=== PATIENT | male | born 1960 | race Caucasian/White ===

== ENCOUNTER 2016-08-03 17:26 | Inpatient (IN) | payer SELFPAY ==
[2016-08-03] VITALS (8 sets, daily range): BP systolic 114–157; BP diastolic 65–101; PULSE 85–160; RESP 18–20; TEMP 98.6–99.9; O2SAT 94–100
[~2016-08-03] VITALS: Ht 180.3 cm; Wt 100.4 kg
[2016-08-03] MEDS ORDERED: DILTIAZEM HCL 25 MG/5 ML VIAL IVP ONE (17:30)
[2016-08-03] MEDS ORDERED: DILTIAZEM INJ 125 MG in SODIUM CHLORIDE 0.9% INJ 100 ML IV SCH (17:30)
[2016-08-03] MEDS ORDERED: SODIUM CHLOR 0.9% 1000 ML INJ 1,000 ML IV ONE (17:30)
[2016-08-03] MEDS ORDERED: SODIUM CHLORIDE 0.9% FLUSH 10 ML FLUSH IVF PRN (17:30)
[2016-08-03] MEDS ORDERED: LORazepam 2 MG/ML VIAL IV PUSH ONE (17:30)
[2016-08-03] MEDS ORDERED: DILTIAZEM HCL 25 MG/5 ML VIAL IV ONE (18:00)
[2016-08-03] MEDS ORDERED: LORazepam 2 MG/ML VIAL IV PUSH PRN ×8 (18:00→19:15)
[2016-08-03] MEDS ORDERED: LORazepam 2 MG TAB PO PRN ×2 (18:00→19:15)
[2016-08-03] MEDS ORDERED: FLUMAZENIL 0.5 MG/5 ML VIAL IV PUSH PRN ×2 (18:00→19:15)
[2016-08-03] MEDS ORDERED: LORazepam 1 MG TAB PO PRN ×2 (18:00→19:15)
--- NOTE | 2016-08-03 18:04 | RADRPT ---
EXAM DATE/TIME: 08/03/2016 17:38 [place] COMPARISON: No previous studies available for comparison. INDICATIONS : Chest pain. MEDICAL HISTORY : None. SURGICAL HISTORY : None. ENCOUNTER: Initial ACUITY: 1 day PAIN SCORE: 0/10 LOCATION: Bilateral chest FINDINGS: A single view of the chest demonstrates the lungs to be symmetrically aerated with some respiratory m otion artifact in the bases. There may be some minimal atelectatic changes above the hemidiaphragms b ut no confluent infiltrates. Heart size is normal. Osseous structures are intact. CONCLUSION: Minimal bibasilar atelectatic changes with no confluent infiltrate or effusion. Sesar Morrow MD on August 03, 2016 at 18:01 Board Certified Radiologist. This report was verified electronically.
[2016-08-03 18:10] LABS: AUTOMATED NEUTROPHIL # 7.3 TH/MM3 (1.8-7.7); BASOPHIL # 0.1 TH/MM3 (0-0.2); BASOPHIL % 0.8 % (0.0-2.0); EOSINOPHIL % 0.2 % (0.0-4.0); HEMATOCRIT 47.8 % (39.0-51.0); HEMO FLAGS DIFF FINAL; LYMPH % 9.9 % (9.0-44.0); LYMPHOCYTE # 0.9 TH/MM3 (1.0-4.8); MEAN CELL VOLUME 102.8 FL (80.0-100.0); MEAN CORPUSCULAR HEMOGLOBIN 35.3 PG (27.0-34.0); MEAN CORPUSCULAR HGB CONC 34.3 % (32.0-36.0); MONO % 12.1 % (0.0-8.0); PLATELET COUNT 134 TH/MM3 (150-450); RED BLOOD COUNT 4.65 MIL/MM3 (4.50-5.90); RED CELL DISTRIBUTION WIDTH 12.6 % (11.6-17.2); WHITE BLOOD COUNT 9.5 TH/MM3 (4.0-11.0)
--- NOTE | 2016-08-03 18:25 | PD ---
HPI Chief Complaint: Cardiac Complaint Time Seen by Provider: 17:29 Travel History International Travel<30 days: No Contact w/Intl Traveler<30days: No Traveled to known affect area: No History of Present Illness HPI So 56-year-old male presents to the emergency department complaining of feeling off balance and dizzy and lightheaded since yesterday. On scene with EMS he was in A. fib RVR which is new for him. EMS called a STEMI alert because of the right knee appearance of his EKG. Patient states she's never had similar symptoms before. Treated for hypertension in the past but when he lost weight he really didn't have any symptoms anymore. He is not on any medications now. He does drink alcohol 8-12 beers a day. Endorses getting shaky be doesn't drink , but no other more fulminant withdrawal symptoms in the past. Last drank yesterday. States today felt ill, does drink some water only. Denies any significant chest pain, he does get some occasional chest tightness. No dyspnea on exertion. No syncope. No other complaints. History Past Medical History Narrative Medical History of hypertension in the past Daily alcohol use, 8-10 beers Social History Alcohol Use: Yes (8-12 BEERS ) Tobacco Use: Yes (PACK A DAY ) Allergies-Medications (Allergen,Severity, Reaction): Coded Allergies: Penicillin (Verified Allergy, Unknown, RASH, 08/03/16) Reported Meds & Prescriptions Reported Meds & Active Scripts Active No Active Prescriptions or Reported Medications Review of Systems Except as stated in HPI: all other systems reviewed are Neg Physical Exam Narrative GENERAL: 56-year-old man, generally well-appearing. No acute distress. SKIN: Focused skin assessment warm/dry. HEAD: Atraumatic. Normocephalic. EYES: Pupils equal and round. No scleral icterus. No injection or drainage. ENT: No nasal bleeding or discharge. Mucous membranes pink and moist. NECK: Trachea midline. No JVD. CARDIOVASCULAR: Heart rate rapid and irregular. Good perfusion. RESPIRATORY: No accessory muscle use. Clear to auscultation. Breath sounds equal bilaterally. GASTROINTESTINAL: Abdomen soft, non-tender, nondistended. Hepatic and splenic margins not palpable. MUSCULOSKELETAL: No obvious deformities. No edema. NEUROLOGICAL: Awake and alert. No obvious cranial nerve deficits. Motor grossly within normal limits. Normal speech. Data Data Last Documented VS Vital Signs Date Time Temp Pulse Resp B/P Pulse Ox O2 Delivery O2 Flow Rate FiO2 08/03/16 17:45 150 18 100 Nasal Cannula 2 08/03/16 17:30 99.9 157/101 Orders Electrocardiogram (08/03/16:29) Ckmb (Isoenzyme) Profile (08/03/16:29) Complete Blood Count With Diff (08/03/16:) Comprehensive Metabolic Panel (08/03/16) Magnesium (Mg) (08/03/16:29) Prothrombin Time / Inr (Pt) (08/03/16:29) Act Partial Throm Time (Ptt) (08/03/16:29) Troponin I (08/03/16) Lipase (08/03/16:29) Chest, Single Ap (08/03/16:29) Ecg Monitoring (08/03/16:29) Iv Access Insert/Monitor (08/03/16) Oximetry (08/03/16:29) Oxygen Administration (08/03/16:29) Sodium Chloride 0.9% Flush (Ns Flush) (08/03/16:30) Sodium Chlor 0.9% 1000 Ml Inj (Ns 1000 M (08/03/16 17:30) Lorazepam Inj (Ativan Inj) (08/03/16 17:30) Vital Signs (Adult) Q15MX4,Q4H (08/03/16:29) Tower Switch Operator / Telemetry AUDRA.Q8H (08/03/16:29) Cardiac Rhythm AUDRA.Q8H (08/03/16 17:29) Notify Dr: Other (08/03/16:29) Diltiazem Inj (Cardizem Inj) (08/03/16 17:30) Diltiazem Inj (Cardizem Inj) (08/03/16 17:30) Diltiazem Inj (Cardizem Inj) (08/03/16 18:00) Alcohol Withdrawal Asmt-Ciwa Q4HX18 (08/03/16 17:57) Flumazenil Inj (Romazicon Inj) (08/03/16 18:00) Lorazepam (Ativan) (08/03/16 18:00) Lorazepam Inj (Ativan Inj) (08/03/16 18:00) Lorazepam (Ativan) (08/03/16 18:00) Lorazepam Inj (Ativan Inj) (08/03/16 18:00) Lorazepam Inj (Ativan Inj) (08/03/16 18:00) Lorazepam Inj (Ativan Inj) (08/03/16 18:00) CKMB (08/03/16 17:50) CKMB% (08/03/16 17:50) Labs Laboratory Tests Test 08/03/16 17:50 White Blood Count 9.5 TH/MM3 Red Blood Count 4.65 MIL/MM3 Hemoglobin 16.4 GM/DL Hematocrit 47.8 % Mean Corpuscular Volume 102.8 FL Mean Corpuscular Hemoglobin 35.3 PG Mean Corpuscular Hemoglobin 34.3 % Concent Red Cell Distribution Width 12.6 % Platelet Count 134 TH/MM3 Mean Platelet Volume 8.5 FL Neutrophils (%) (Auto) 77.0 % Lymphocytes (%) (Auto) 9.9 % Monocytes (%) (Auto) 12.1 % Eosinophils (%) (Auto) 0.2 % Basophils (%) (Auto) 0.8 % Neutrophils # (Auto) 7.3 TH/MM3 Lymphocytes # (Auto) 0.9 TH/MM3 Monocytes # (Auto) 1.1 TH/MM3 Eosinophils # (Auto) 0.0 TH/MM3 Basophils # (Auto) 0.1 TH/MM3 CBC Comment DIFF FINAL Differential Comment Prothrombin Time 12.4 SEC Prothromb Time International 1.1 RATIO Ratio Activated Partial 27.1 SEC Thromboplast Time Sodium Level 138 MEQ/L Potassium Level 3.8 MEQ/L Chloride Level 106 MEQ/L Carbon Dioxide Level 24.4 MEQ/L Anion Gap 8 MEQ/L Blood Urea Nitrogen 7 MG/DL Creatinine 0.81 MG/DL Estimat Glomerular Filtration 98 ML/MIN Rate Random Glucose 142 MG/DL Calcium Level 8.3 MG/DL Magnesium Level 1.8 MG/DL Total Bilirubin 1.4 MG/DL Aspartate Amino Transf 42 U/L (AST/SGOT) Alanine Aminotransferase 63 U/L (ALT/SGPT) Alkaline Phosphatase 69 U/L Total Creatine Kinase 151 U/L Troponin I 0.11 NG/ML Total Protein 6.6 GM/DL Albumin 3.3 GM/DL Lipase 159 U/L [facility] Medical Decision Making Medical Screen Exam Complete: Yes Emergency Medical Condition: Yes Interpretation(s) My review of EKG: A. fib with RVR, heart rate 150s, right bundle branch block, no acute ischemia. LABS: CBC unremarkable. CMP generally unremarkable. Total bili 1.4. Troponin 0.11 Lipase normal Coags unremarkable Chest x-ray: Minimal bibasilar atelectatic changes with no confluent infiltrate or effusion. Differential Diagnosis A. fib RVR, electrolyte abnormality, alcohol withdrawal, dehydration, other Narrative Course Medical decision making INITIAL: This a 56-year-old man who presents to the emergency department complaining of lightheadedness dizziness. He is in A. fib RVR. He is a right bundle branch block. EMS called stimulator in the field. He is not having a STEMI. He may be having occult withdrawal symptoms as well as a grizzled anxious and jittery. We'll rate control him with diltiazem. We'll give him benzodiazepines and IV fluids as well. He'll be admitted for further evaluation. Diagnosis Primary Impression: Atrial fibrillation with RVR Additional Impression: Alcohol withdrawal Qualified Code: F10.230 - Alcohol withdrawal, uncomplicated Admitting Information Admitting Physician Requests: Admit Scripts No Active Prescriptions or Reported Meds Cristhian Matt MD Aug 03, 2016 18:25
[2016-08-03 18:31] LABS: ALT (GPT) 63 U/L (12-78); ANION GAP 8 MEQ/L (5-15); AST (GOT) 42 U/L (15-37); BICARBONATE 24.4 MEQ/L (21.0-32.0); BLOOD UREA NITROGEN 7 MG/DL (7-18); CHLORIDE 106 MEQ/L (98-107); GLOMERULAR FILTRATION RATE 98 ML/MIN (>89); MAGNESIUM 1.8 MG/DL (1.5-2.5); POTASSIUM 3.8 MEQ/L (3.5-5.1); SODIUM (NA) 138 MEQ/L (136-145)
[2016-08-03 18:34] LABS: ALKALINE PHOSPHATASE 69 U/L (45-117); CREATINE KINASE 151 U/L (39-308); TOTAL BILIRUBIN ADULT 1.4 MG/DL (0.2-1.0)
[2016-08-03 18:35] LABS: APTT (PATIENT) 27.1 SEC (24.3-30.1); INTERNATIONAL NORMALIZED RATIO 1.1 RATIO; PROTHROMBIN TIME - PATIENT 12.4 SEC (9.8-11.6)
[2016-08-03 18:47] LABS: CKMB 5.6 NG/ML (0.5-3.6)
[2016-08-03] MEDS ORDERED: ACETAMINOPHEN 325 MG TAB PO PRN (19:15)
[2016-08-03] MEDS ORDERED: SODIUM CHLORIDE 0.9% FLUSH 10 ML FLUSH IV FLUSH PRN ×2 (19:15)
[2016-08-03] MEDS ORDERED: MAGNESIUM HYDROXIDE SUSP 30 ML CUP PO PRN (19:15)
[2016-08-03] MEDS ORDERED: ONDANSETRON HCL 4 MG/2 ML VIAL IVP PRN (19:15)
[2016-08-03] MEDS ORDERED: TEMAZEPAM 15 MG CAP PO PRN (19:15)
[2016-08-03] MEDS: DOCUSATE SODIUM 100 MG CAP PO SCH (20:00)
[2016-08-03] MEDS ORDERED: THIAMINE INJ 100 MG in SODIUM CHLORIDE 0.9% INJ 100 ML IV ONE (20:00)
[2016-08-03] MEDS: SODIUM CHLORIDE 0.9% FLUSH 10 ML FLUSH IV FLUSH SCH (20:25)
[2016-08-03] MEDS: ENOXAPARIN SODIUM 40 MG/0.4 ML SYRINGE SQ SCH (20:25)
[2016-08-03] MEDS ORDERED: SODIUM CHLORIDE 0.9% FLUSH 10 ML FLUSH IV FLUSH SCH (21:00)
--- NOTE | 2016-08-03 23:09 | EKG ---
Date Performed: 08/03/2016 Time Performed: 17:34:11 PTAGE: 56 years EKG: ATRIAL FIBRILLATION WITH RAPID VENTRICULAR RESPONSE RIGHT BUNDLE BRANCH BLOCK ABNORMAL ECG NO PREVIOUS TRACING DOCTOR: Dhaval Dye Interpretating Date/Time 08/03/2016 23:08:27
[2016-08-04] VITALS (32 sets, daily range): BP systolic 135–168; BP diastolic 78–107; PULSE 46–116; RESP 16–18; TEMP 97.5–98.6; O2SAT 93–97
[2016-08-04 06:20] LABS: AUTOMATED NEUTROPHIL # 4.5 TH/MM3 (1.8-7.7); BASOPHIL # 0.1 TH/MM3 (0-0.2); EOSINOPHIL # 0.1 TH/MM3 (0-0.4); EOSINOPHIL % 1.7 % (0.0-4.0); HEMATOCRIT 45.5 % (39.0-51.0); HEMO FLAGS DIFF FINAL; LYMPH % 19.7 % (9.0-44.0); LYMPHOCYTE # 1.3 TH/MM3 (1.0-4.8); MEAN CELL VOLUME 103.6 FL (80.0-100.0); MEAN CORPUSCULAR HEMOGLOBIN 35.2 PG (27.0-34.0); MONO % 7.7 % (0.0-8.0); NEUT % 69.9 % (16.0-70.0); PLATELET COUNT 131 TH/MM3 (150-450); RED BLOOD COUNT 4.39 MIL/MM3 (4.50-5.90); RED CELL DISTRIBUTION WIDTH 12.6 % (11.6-17.2); WHITE BLOOD COUNT 6.4 TH/MM3 (4.0-11.0)
[2016-08-04 06:45] LABS: BICARBONATE 26.8 MEQ/L (21.0-32.0); POTASSIUM 3.3 MEQ/L (3.5-5.1)
--- NOTE | 2016-08-04 06:53 | HHI.HP ---
HPI Service [facility] Primary Care Physician No Primary Care Physician Admission Diagnosis A. fib RVR, alcohol withdrawal Diagnoses: (1) Atrial fibrillation with RVR (2) Elevated troponin I level (3) Alcohol withdrawal Chief Complaint: felt dizzy and lightheaded Travel History International Travel<30 Days: No Contact w/Intl Traveler <30 Da: No Traveled to Known Affected Are: No History of Present Illness Mr. Broussard is a 56-year-old male with a past medical history including hypertension that resolved with weight loss, tobacco abuse, and daily alcohol abuse who presented to the emergency department on 08/03/2016 complaining of imbalance, dizziness, and lightheadedness. Patient was found to have new onset atrial fibrillation with rapid ventricular response with right bundle branch block in the field by EMS. Patient is seen in his hospital room. He states that 01/02/2017, he went to dinner with his friend; had a few alcoholic beverages and got dizzy and lightheaded but was not having palpitations, shortness of breath, or chest pain. He says he felt very anxious, drank a lot of water, didn't smoke or drink overnight and just rested but never felt better. At about 3 p.m. on , his friend told him to come to the hospital as he had not improved symptomatically. He denies any chills, fever, shortness of breath, chest pain , syncope, n/v/d no black or red stool over the past two weeks. He reports feeling "great" and having "maybe too much fun" drinking alcohol and sitting on the beach in the sun without drinking any water. Became a about two years ago- from cancer; went on medication for anxiety x 1 year; been off anxiolytics for one year. Review of Systems Except as stated in HPI: all other systems reviewed are Neg Past Family Social History Past Medical History History including hypertension that resolved with weight loss 7 years ago Tobacco abuse Daily alcohol abuse . Past Surgical History cyst removed as a child . Reported Medications Reported Meds & Active Scripts Active No Active Prescriptions or Reported Medications . Allergies: Coded Allergies: Penicillin (Verified Allergy, Unknown, RASH, 08/03/16) Active Ordered Medications Current Medications Sodium Chloride 2 ml 2 ml UNSCH PRN IVF FLUSH AFTER USING IV ACCESS; Start at 17:30; Stop 08/03/16 at 19:25; Status DC Sodium Chloride (NS 1000 ml Inj) 1,000 ml @ 2,000 mls/hr Q30M ONCE IV Last administered on 08/03/16 17:53; Start 08/03/16 at 17:30; Stop 08/03/16 at 17:59 ; Status DC Lorazepam (Ativan Inj) 1 mg ONCE ONCE IV PUSH Last administered on 08/03/16 17:54; Start 08/03/16 at 17:30; Stop 08/03/16 at 17:34; Status DC Diltiazem HCl 20 mg 20 mg ONCE ONCE IVP Last administered on 08/03/16 17:54; Start 08/03/16 at 17:30; Stop 08/03/16 at 17:34; Status DC Diltiazem HCl/ Sodium Chloride (Cardizem Inj/NS Inj) 125 ml @ 0 mls/hr TITRATE IV Last administered on 08/03/16 18:20; Start 08/03/16 at 17:30 Diltiazem HCl (Cardizem Inj) 25 mg ONCE ONCE IV Last administered on 19:08; Start 08/03/16 at 18:00; Stop 08/03/16 at 18:01; Status DC Flumazenil (Romazicon Inj) 0.2 mg Q1M PRN IV PUSH SEE LABEL COMMENTS; Start at 18:00; Stop 08/03/16 at 19:25; Status DC Lorazepam (Ativan) 1 mg Q4H PRN PO CIWA 8 - 10; Start 08/03/16 at 18:00; Stop 08/03/16 at 19:25; Status DC Lorazepam (Ativan Inj) 1 mg Q4H PRN IV PUSH CIWA 8 - 10; Start 08/03/16 at 18: 00; Stop 08/03/16 at 19:25; Status DC Lorazepam (Ativan) 2 mg Q2H PRN PO CIWA 11-14; Start 08/03/16 at 18:00; Stop at 19:25; Status DC Lorazepam (Ativan Inj) 2 mg Q2H PRN IV PUSH CIWA 11-14; Start 08/03/16 at 18:00 ; Stop 08/03/16 at 19:25; Status DC Lorazepam (Ativan Inj) 2 mg Q1H PRN IV PUSH CIWA 15-20; Start 08/03/16 at 18:00 ; Stop 08/03/16 at 19:25; Status DC Lorazepam (Ativan Inj) 2 mg Q15M PRN IV PUSH CIWA > 20; Start 08/03/16 at 18:00 ; Stop 08/03/16 at 19:25; Status DC Sodium Chloride (NS Flush) 2 ml UNSCH PRN IV FLUSH FLUSH AFTER USING IV ACCESS ; Start 08/03/16 at 19:15; Stop 08/03/16 at 19:26; Status DC Sodium Chloride (NS Flush) 2 ml BID IV FLUSH ; Start 08/03/16 at 21:00; Stop at 21:00; Status DC Acetaminophen (Tylenol) 650 mg Q4H PRN PO TEMP > 100.4; Start 08/03/16 at 19:15 Ondansetron HCl (Zofran Inj) 4 mg Q6H PRN IVP NAUSEA OR VOMITING; Start at 19:15 Docusate Sodium (Colace) 100 mg Q12H PO ; Start 08/03/16 at 20:00 Magnesium Hydroxide (Milk Of Magnesia Liq) 30 ml Q12H PRN PO CONSTIPATION; Start 08/03/16 at 19:15 Temazepam (Restoril) 15 mg HS PRN PO INSOMNIA; Start 08/03/16 at 19:15 Enoxaparin Sodium (Lovenox Inj) 40 mg Q24H SQ Last administered on 08/03/16t 20 :25; Start 08/03/16 at 20:00 Sodium Chloride (NS Flush) 2 ml UNSCH PRN IV FLUSH FLUSH AFTER USING IV ACCESS ; Start 08/03/16 at 19:15 Sodium Chloride (NS Flush) 2 ml BID IV FLUSH Last administered on 08/03/16t 20: 25; Start 08/03/16 at 21:00 Folic Acid (Folate) 1 mg DAILY PO ; Start 08/04/16 at 09:00; Stop 08/09/16 at 08 :59 Thiamine HCl (Vitamin B1) 100 mg DAILY PO ; Start 08/04/16 at 09:00 Multivitamins/ Minerals Therapeutic (Theragran M Tab) 1 tab DAILY PO ; Start at 09:00; Stop 08/09/16 at 08:59 Pantoprazole Sodium (Protonix) 40 mg DAILY PO ; Start 08/04/16 at 09:00 Flumazenil (Romazicon Inj) 0.2 mg Q1M PRN IV PUSH SEE LABEL COMMENTS; Start at 19:15 Lorazepam (Ativan) 1 mg Q4H PRN PO CIWA 8 - 10 Last administered on 08/03/16 22:01; Start 08/03/16 at 19:15 Lorazepam (Ativan Inj) 1 mg Q4H PRN IV PUSH CIWA 8 - 10; Start 08/03/16 at 19: 15 Lorazepam (Ativan) 2 mg Q2H PRN PO CIWA 11-14; Start 08/03/16 at 19:15 Lorazepam (Ativan Inj) 2 mg Q2H PRN IV PUSH CIWA 11-14; Start 08/03/16 at 19:15 Lorazepam (Ativan Inj) 2 mg Q1H PRN IV PUSH CIWA 15-20; Start 08/03/16 at 19:15 Lorazepam 2 mg 2 mg Q15M PRN IV PUSH CIWA > 20; Start 08/03/16 at 19:15 Thiamine HCl/ Sodium Chloride (Thiamine Inj/NS Inj) 101 ml @ 101 mls/hr ONCE ONCE IV Last administered on 08/03/16 20:24; Start 08/03/16 at 20:00; Stop at 20:59; Status DC . Family History father had diabetes . Social History Tobacco: a little more than one pack per day Alcohol: 8-12 beers daily Illicit Drugs: none . Physical Exam Vital Signs Vital Signs Date Time Temp Pulse Resp B/P Pulse Ox O2 Delivery O2 Flow Rate FiO2 08/04/16 06:00 58 08/04/16 05:00 62 08/04/16 04:00 60 08/04/16 03:25 56 08/04/16 03:24 46 08/04/16 03:00 98.4 85 18 143/80 97 08/04/16 03:00 108 4/19/17 02:00 102 08/04/16 01:00 108 08/04/16 00:00 116 08/03/16 23:00 102 08/03/16 23:00 85 20 145/92 95 08/03/16 22:00 110 08/03/16 21:30 98.6 93 18 151/92 94 08/03/16 21:00 98 08/03/16 20:25 87 18 122/70 98 Nasal Cannula 2 08/03/16 20:09 89 18 114/67 99 Nasal Cannula 2 08/03/16 19:08 98 Nasal Cannula 2 08/03/16 19:08 130 18 149/65 98 Nasal Cannula 2 08/03/16 17:45 150 18 100 Nasal Cannula 2 08/03/16 17:44 100 Nasal Cannula 2 08/03/16 17:30 99.9 160 18 157/101 100 Physical Exam GENERAL: This is a well-nourished, well-developed patient, in no apparent distress. SKIN: No rashes, ecchymoses or lesions. Cool and dry. Appears very sun exposed. HEAD: Atraumatic. Normocephalic. EYES: No scleral icterus. No injection or drainage. ENT: Nose without bleeding, purulent drainage. NECK: Trachea midline. No JVD or lymphadenopathy. CARDIOVASCULAR: Regular rate and rhythm without murmurs, gallops, or rubs. RESPIRATORY: Clear to auscultation. Breath sounds equal bilaterally. No wheezes , rales, or rhonchi. GASTROINTESTINAL: Abdomen soft, non-tender, nondistended. No guarding. MUSCULOSKELETAL: Extremities without clubbing, cyanosis, or edema. No calf tenderness. NEUROLOGICAL: Awake and alert. Motor and sensory grossly within normal limits. Normal speech. . Laboratory Laboratory Tests Test 08/03/16 08/03/16 08/04/16 17:50 23:57 04:51 White Blood Count 9.5 6.4 Red Blood Count 4.65 4.39 Hemoglobin 16.4 15.5 Hematocrit 47.8 45.5 Mean Corpuscular Volume 102.8 103.6 Mean Corpuscular Hemoglobin 35.3 35.2 Mean Corpuscular Hemoglobin 34.3 34.0 Concent Red Cell Distribution Width 12.6 12.6 Platelet Count 134 131 Mean Platelet Volume 8.5 8.8 Neutrophils (%) (Auto) 77.0 69.9 Lymphocytes (%) (Auto) 9.9 19.7 Monocytes (%) (Auto) 12.1 7.7 Eosinophils (%) (Auto) 0.2 1.7 Basophils (%) (Auto) 0.8 1.0 Neutrophils # (Auto) 7.3 4.5 Lymphocytes # (Auto) 0.9 1.3 Monocytes # (Auto) 1.1 0.5 Eosinophils # (Auto) 0.0 0.1 Basophils # (Auto) 0.1 0.1 CBC Comment DIFF FINAL DIFF FINAL Differential Comment Prothrombin Time 12.4 Prothromb Time International 1.1 Ratio Activated Partial 27.1 Thromboplast Time Sodium Level 138 Potassium Level 3.8 Chloride Level 106 Carbon Dioxide Level 24.4 Anion Gap 8 Blood Urea Nitrogen 7 Creatinine 0.81 Estimat Glomerular Filtration 98 Rate Random Glucose 142 Calcium Level 8.3 Magnesium Level 1.8 Total Bilirubin 1.4 Aspartate Amino Transf 42 (AST/SGOT) Alanine Aminotransferase 63 (ALT/SGPT) Alkaline Phosphatase 69 Total Creatine Kinase 151 Creatine Kinase MB 5.6 Troponin I 0.11 0.08 Total Protein 6.6 Albumin 3.3 Lipase 159 Result Diagram: 08/04/16 0451 08/03/16 1750 Imaging Last Impressions Chest X-Ray 08/03/16 1729 Signed Impressions: Service Date/Time: Wednesday, August 03, 2016 17:38 - CONCLUSION: Minimal bibasilar atelectatic changes with no confluent infiltrate or effusion. Sesar Morrow MD . Assessment and Plan Problem List: (1) Atrial fibrillation with RVR ICD Code: I48.91 Status: Acute (2) Elevated troponin I level ICD Code: R74.8 Status: Acute (3) Alcohol withdrawal ICD Code: F10.239 Status: Acute Assessment and Plan Mr. Broussard is a 56-year-old male with a past medical history including hypertension that resolved with weight loss, tobacco abuse, and daily alcohol abuse who presented to the emergency department on 08/03/2016 complaining of imbalance, dizziness, and lightheadedness. Patient was found to have new onset atrial fibrillation with rapid ventricular response with right bundle branch block in the field by EMS. Atrial fibrillation with rapid ventricular response - IV Cardizem drip - Continuous cardiac telemetry to monitor for further arrhythmia - consult cardiology - 2-D echocardiogram to evaluate heart structure and function Elevated troponin I - likely secondary to A. fib with RVR - Perform serial troponin I measurements and follow trends - Serial EKGs Alcohol withdrawal - [facility] protocol - Folic acid, thiamine, and multivitamin supplementation - Protonix 40 mg by mouth daily DVT prophylaxis - Lovenox 40 mg subcutaneous every 24 hours Written by Mimi Toney, acting as scribe for Dr. Patino on 08/04/16 at 06:51. This note was transcribed by scribe [Mimi Toney]. I, Dr. Sania Patino personally performed the history, physical exam, and medical decision making; and confirmed the accuracy of the information in the transcribed note. Authenticated by Dr. Sania Patino on 08/04/16 at 06:51. . Discussed Condition With ER physician and patient . Physician Certification 2 Midnight Certification Type: Admission for Inpatient Services Order for Inpatient Services The services are ordered in accordance with Medicare regulations or non- Medicare payer requirements, as applicable. In the case of services not specified as inpatient-only, they are appropriately provided as inpatient services in accordance with the 2-midnight benchmark. Estimated LOS (days): 3 days is the estimated time the patient will need to remain in the hospital, assuming treatment plan goals are met and no additional complications. Post-Hospital Plan: Home Problem Qualifiers (1) Alcohol withdrawal: Qualified Code: F10.230 - Alcohol withdrawal, uncomplicated Mimi Toney Aug 04, 2016 06:53 Sania Patino MD Aug 04, 2016 08:47
[2016-08-04] MEDS: SODIUM CHLORIDE 0.9% FLUSH 10 ML FLUSH IV FLUSH SCH ×2 (08:35→21:46)
[2016-08-04] MEDS: PANTOPRAZOLE SOD 40 MG DELAYED RELEASE TAB PO SCH (08:35)
[2016-08-04] MEDS: DOCUSATE SODIUM 100 MG CAP PO SCH ×2 (08:35→20:00)
[2016-08-04] MEDS: THIAMINE HCL 100 MG TAB PO SCH (08:35)
[2016-08-04] MEDS: MULTIVITAMINS/MINERALS THERAPEUTIC TAB PO SCH (08:35)
[2016-08-04] MEDS: FOLIC ACID 1 MG TAB PO SCH (08:35)
[2016-08-04] MEDS: DILTIAZEM-CD 120 MG CAP ER PO SCH (08:35)
[2016-08-04] MEDS ORDERED: cloNIDine HCL 0.1 MG TAB PO PRN (09:30)
[2016-08-04] MEDS: LISINOPRIL 10 MG TAB PO SCH (10:08)
--- NOTE | 2016-08-04 17:29 | HHI.PR ---
Subjective Remarks Patient is feeling better. He has had no recurrence of his symptoms after initiating Diltiazem. He is now off IV Diltiazem and sustaining NSR on oral Diltiazem. No prior history of A-fib. He admits to an alcohol binge, dehydration (too much time in the sun) and poor sleep preceeding the onset of his tachyarrhythmia. No chest pain. No evidence or report of DT symptoms by the patient. Objective Vital Signs Date Time Temp Pulse Resp B/P Pulse Ox O2 Delivery O2 Flow Rate FiO2 08/04/16 12:49 74 18 135/78 95 08/04/16 12:01 71 08/04/16 11:30 97.8 74 16 168/106 95 08/04/16 11:00 73 08/04/16 10:01 90 08/04/16 09:01 94 21 08/04/16 09:00 80 08/04/16 08:45 98.6 71 18 157/94 97 08/04/16 08:00 64 08/04/16 07:00 66 08/04/16 06:00 58 08/04/16 05:00 62 08/04/16 04:00 60 08/04/16 03:25 56 08/04/16 03:24 46 08/04/16 03:00 98.4 85 18 143/80 97 08/04/16 03:00 108 08/04/16 02:00 102 08/04/16 01:00 108 08/04/16 00:00 116 08/03/16 23:00 102 08/03/16 23:00 85 20 145/92 95 08/03/16 22:00 110 08/03/16 21:30 98.6 93 18 151/92 94 08/03/16 21:00 98 08/03/16 20:25 87 18 122/70 98 Nasal Cannula 2 08/03/16 20:09 89 18 114/67 99 Nasal Cannula 2 08/03/16 19:08 98 Nasal Cannula 2 08/03/16 19:08 130 18 149/65 98 Nasal Cannula 2 08/03/16 17:45 150 18 100 Nasal Cannula 2 08/03/16 17:44 100 Nasal Cannula 2 08/03/16 17:30 99.9 160 18 157/101 100 I/O 4/18/08/03/16 08/03/16 08/04/16 08/04/16 08/04/16 07:00 15:00 23:00 07:00 15:00 23:00 Intake Total 527 ml Output Total 975 ml Balance -448 ml Intake Oral 462 ml IV Total 65 ml Output Urine Total 975 ml Result Diagram: 08/04/16 0451 08/04/16 045 Objective Remarks GENERAL: NAD, A&Ox3 SKIN: Warm and dry. HEAD: Normocephalic. EYES: No scleral icterus. No injection or drainage. NECK: Supple, trachea midline. No JVD or lymphadenopathy. CARDIOVASCULAR: Regular rate and rhythm without murmurs, gallops, or rubs. RESPIRATORY: Breath sounds equal bilaterally. No accessory muscle use. GASTROINTESTINAL: Abdomen soft, non-tender, nondistended. MUSCULOSKELETAL: No cyanosis, or edema. BACK: Nontender without obvious deformity. No CVA tenderness. Medications and IVs Administered Medications Medications (Trade) Dose Ordered Sig/Fabrizio Route PRN Reason Start Time Stop Time Status Last Admin Dose Admin Docusate Sodium (Colace) 100 mg Q12H PO 08/03/16 20:00 08/04/16 08:35 Enoxaparin Sodium (Lovenox Inj) 40 mg Q24H SQ 08/03/16 20:00 08/03/16 20:25 Sodium Chloride (NS Flush) 2 ml BID IV FLUSH 08/03/16 21:00 08/04/16 08:35 Folic Acid (Folate) 1 mg DAILY PO 08/04/16 09:00 08/09/16 08:59 08/04/16 08:35 Thiamine HCl (Vitamin B1) 100 mg DAILY PO 08/04/16 09:00 08/04/16 08:35 Multivitamins/ Minerals Therapeutic (Theragran M Tab) 1 tab DAILY PO 08/04/16 09:00 08/09/16 08:59 08/04/16 08:35 Pantoprazole Sodium (Protonix) 40 mg DAILY PO 08/04/16 09:00 08/04/16 08:35 Lorazepam (Ativan) 1 mg Q4H PRN PO CIWA 8 - 10 08/03/16 19:15 08/03/16 22:01 Diltiazem HCl (Cardizem Cd) 120 mg DAILY PO 08/04/16 09:00 08/04/16 08:35 Clonidine (Catapres) 0.1 mg Q6H PRN PO SBP>160, DBP>90 08/04/16 09:30 08/04/16 11:15 Lisinopril (Prinivil) 10 mg DAILY PO 08/04/16 09:30 08/04/16 10:08 A/P Problem List: (1) Atrial fibrillation with RVR ICD Code: I48.91 Assessment & Plan: Resolved Continue PO Diltiazem Continue monitoring on telemetry Cardiology following Echo results in process (2) Elevated troponin I level ICD Code: R74.8 Assessment & Plan: Mild elevation and downward trend May be related to dehydration and prolonged tachycardia No chest pain reported by the patient Discharge Planning Possible discharge tomorrow pending no recurrence of A-fib RVR, no cardiac symptoms, and adequate echocardiogram findings. Kingston Perez MD Aug 04, 2016 17:29
--- NOTE | 2016-08-04 19:07 | MB ---
cc: IRIS DUNHAM DATE OF CONSULTATION 08/04/2016 HISTORY OF THE PRESENT ILLNESS A 56-year-old white male with a history of hypertension, smoking and heavy drinking. He has increased his alcohol use recently, over the last several days and developed episodes of loss of balance, dizziness and lightheadedness that he had trouble sitting up. He has not had any chest pain or palpitations or shortness of breath. He has not had any peripheral edema. He was diagnosed with atrial fibrillation and he has a rapid ventricular response. He spontaneously converted to sinus rhythm and he is now feeling better. PAST MEDICAL HISTORY Positive for: 1. Hypertension. 2. Obesity with significant weight loss. MEDICATIONS None. ALLERGIES PENICILLIN. SOCIAL HISTORY The patient is a smoker. He drinks at least 6-8 beers every day. FAMILY HISTORY Negative for coronary artery disease. Positive for diabetes. REVIEW OF SYSTEMS Otherwise negative. PHYSICAL EXAMINATION VITAL SIGNS: Blood pressure 135/78, pulse 74 and regular. HEENT: Negative. 2+ carotid upstroke. No bruits. LUNGS: Clear. HEART: Regular with no murmur, gallop or rub. ABDOMEN: Soft. No bruits. EXTREMITIES: Without edema. 2+ distal pulses. NEUROLOGICAL: Grossly nonfocal. Electrocardiogram was reviewed and showed atrial fibrillation with rapid ventricular response, normal axis and right bundle-branch block. Telemetry now shows sinus rhythm. LABORATORY DATA Hemoglobin 15.5. Potassium 3.3. Creatinine 0.6. CK 1.51. Troponin 0.11, 0.08 and 0.06. DIAGNOSES 1. Atrial fibrillation with rapid ventricular response. 2. Heavy alcohol use. 3. Smoking. 4. Hypertension. 5. Mildly elevated troponin. DISPOSITION Mr. Broussard spontaneously converted to sinus rhythm. He will be monitored on telemetry. He will be monitored for alcohol withdrawal. I will check his echocardiogram. I recommend to continue therapy with Diltiazem. I believe he is a poor candidate for full anticoagulation at this time given his heavy drinking. I will follow him for cardiology during his hospitalization. Iris Dunham MD OQ/KK /4:10 PM /6:54 PM [facility]
--- NOTE | 2016-08-04 21:02 | EC ---
Study Study Date:08/04/2016 STUDY CONCLUSIONS SUMMARY LEFT VENTRICLE: The cavity size was normal. Wall thickness was normal. Systolic function was at the lower limits of normal. The estimated ejection fraction was 50%. Wall motion was normal; there were no regional wall motion abnormalities. If LV function is below 40, please consider prescribing an ACEI or ARB or document rationale for non-use. PROCEDURE DATA STUDY STATUS: Elective. Procedure: Transthoracic echocardiography. Image quality was good. Scanning was performed from the parasternal, apical, and subcostal acoustic windows. Study completion: The patient tolerated the procedure well. Transthoracic echocardiography. M-mode, complete 2D, complete spectral Doppler, and color Doppler. Height: Height: 71in. Weight: Weight: 219.5lb. Body mass index: BMI: 30.7kg/m^2. Body surface area: BSA: 2.2m^2. Patient status: Inpatient. CARDIAC ANATOMY LEFT VENTRICLE: The cavity size was normal. Wall thickness was normal. Systolic function was at the lower limits of normal. The estimated ejection fraction was 50%. Wall motion was normal; there were no regional wall motion abnormalities. AORTIC VALVE: Trileaflet; normal thickness leaflets. Doppler: Transvalvular velocity was within the normal range. There was no stenosis. No regurgitation. Valve area: 3.35cm^2 (Vmax). Indexed valve area: 1.52cm^2/m^2 (Vmax). AORTA: Aortic root: The aortic root was normal in size. MITRAL VALVE: Structurally normal valve. Doppler: Transvalvular velocity was within the normal range. There was no evidence for stenosis. Trace regurgitation. LEFT ATRIUM: The atrium was normal in size. RIGHT VENTRICLE: The cavity size was normal. Wall thickness was normal. PULMONIC VALVE: Doppler: Transvalvular velocity was within the normal range. There was no evidence for stenosis. No regurgitation. TRICUSPID VALVE: Structurally normal valve. Doppler: Transvalvular velocity was within the normal range. Trace regurgitation. PULMONARY ARTERY: The main pulmonary artery was normal-sized. Systolic pressure was within the normal range. RIGHT ATRIUM: The atrium was normal in size. PERICARDIUM: There was no pericardial effusion. SYSTEMIC VEINS: Inferior vena cava: The vessel was normal in size. Patient weight: 219.5lb _Ejection fraction:_ 65-75% _Fractional shortening:_ 32% up to 5Kg 5-11.5Kg 11.6-22.9Kg 23-45Kg 45-57Kg Aortic Root 7-13 <17 13-22 17-27 17-27 LA diam 6-13 <23 24-38 33-47 37-40 RVID 10-17 7-15 7-15 7-18 8-17 LVIDd 12-22 <32 24-38 33-47 37-40 LVPW 2-4 3-6 5-7 6-8 7-8 IVS 2-4 3-6 5-7 6-8 7-8 BASIC MEASUREMENTS ADULT NORMAL Left ventricle LV internal dimension, ED, chordal 46.4 mm 43-52 level, PLAX LV internal dimension, ES, chordal 37.6 mm 23-38 level, PLAX Fractional shortening, chordal level, *19 % >29 PLAX LV posterior wall thickness, ED 11.4 mm IVS/LVPW ratio, ED 1 <1.3 Ventricular septum Septal thickness, ED 11.4 mm Aortic valve Leaflet separation 20 mm 15-26 BASIC MEASUREMENTS ADULT NORMAL Aortic valve Leaflet separation 20 mm 15-26 Aorta Root diameter, ED 32 mm 20-37 Left atrium Anterior-posterior dimension, ES 35 mm 19-40 Anterior-posterior dimension index, ES 1.59 cm/m^2 <2.2 LA/aortic root ratio 1.09 DOPPLER MEASUREMENTS ADULT NORMAL Main pulmonary artery Pressure, S 19 mm Hg =30 Aortic valve Peak velocity, S 132 cm/s Valve area, Vmax 3.35 cm^2 Valve area index, Vmax 1.52 cm^2/m^2 Mitral valve Peak E-wave velocity 47.9 cm/s Peak A-wave velocity 57.3 cm/s Deceleration time *271 ms 150-230 Peak E/A ratio 0.8 Maximal regurgitant velocity 312 cm/s Tricuspid valve Regurgitant peak velocity 167 cm/s Peak RV-RA gradient, S 11 mm Hg Maximal regurgitant velocity 167 cm/s Systemic veins Estimated CVP 10 mm Hg Right ventricle RV pressure, S 22 mm Hg <30 Pulmonic valve Peak velocity, S 89.6 cm/s LEGEND: Mean values are shown as u=mean value. Asterisk (*) nielsen values outside specified normal range. Prepared and signed by Iris Dunham [id number]
[2016-08-04] MEDS: ENOXAPARIN SODIUM 40 MG/0.4 ML SYRINGE SQ SCH (21:45)
--- NOTE | 2016-08-04 22:18 | EKG ---
Date Performed: 08/04/2016 Time Performed: 06:24:08 PTAGE: 56 years EKG: Sinus rhythm with borderline 1st degree A-V block Borderline ECG PREVIOUS TRACING : 08/04/2016 01.33 Compared to the previous tracing, previously atrial fibrill ation with RBBB. DOCTOR: Dhaval Dye Interpretating Date/Time 08/04/2016 22:16:58
--- NOTE | 2016-08-04 22:29 | EKG ---
Date Performed: 08/04/2016 Time Performed: 01:33:28 PTAGE: 56 years EKG: Atrial fibrillation with rapid ventricular response Right bundle branch block Inferior T wa ve changes are nonspecific Abnormal ECG PREVIOUS TRACING : 08/03/2016 17.34 Compared to the previous tracing, rate has decreased DOCTOR: Dhaval Dye Interpretating Date/Time 08/04/2016 22:27:59
[2016-08-05] VITALS (15 sets, daily range): BP systolic 137–161; BP diastolic 95–110; PULSE 55–90; RESP 16; TEMP 97.8–99.2; O2SAT 94–96
[2016-08-05] MEDS: DOCUSATE SODIUM 100 MG CAP PO SCH (08:00)
[2016-08-05] MEDS: LISINOPRIL 10 MG TAB PO SCH (08:45)
[2016-08-05] MEDS: SODIUM CHLORIDE 0.9% FLUSH 10 ML FLUSH IV FLUSH SCH (08:46)
[2016-08-05] MEDS: PANTOPRAZOLE SOD 40 MG DELAYED RELEASE TAB PO SCH (08:46)
[2016-08-05] MEDS: DILTIAZEM-CD 120 MG CAP ER PO SCH (08:46)
[2016-08-05] MEDS: MULTIVITAMINS/MINERALS THERAPEUTIC TAB PO SCH (08:46)
[2016-08-05] MEDS: FOLIC ACID 1 MG TAB PO SCH (08:46)
[2016-08-05] MEDS: THIAMINE HCL 100 MG TAB PO SCH (08:46)
--- NOTE | 2016-08-05 09:35 | PD.CARD.PN ---
Subjective Subjective Remarks No CP or SOB, feels better Objective Medications Current Medications Medications (Trade) Dose Ordered Sig/Fabrizio Route Start Time Stop Time Status Last Admin (Tylenol) 650 mg Q4H PRN PO 08/03/16 19:15 (Zofran Inj) 4 mg Q6H PRN IVP 08/03/16 19:15 (Colace) 100 mg Q12H PO 08/03/16 20:00 08/04/16 08:35 (Milk Of Magnesia Liq) 30 ml Q12H PRN PO 08/03/16 19:15 (Restoril) 15 mg HS PRN PO 08/03/16 19:15 (Lovenox Inj) 40 mg Q24H SQ 08/03/16 20:00 08/04/16 21:45 (NS Flush) 2 ml UNSCH PRN IV FLUSH 08/03/16 19:15 (NS Flush) 2 ml BID IV FLUSH 08/03/16 21:00 08/05/16 08:46 (Folate) 1 mg DAILY PO 08/04/16 09:00 08/09/16 08:59 08/05/16 08:46 (Vitamin B1) 100 mg DAILY PO 08/04/16 09:00 08/05/16 08:46 (Theragran M Tab) 1 tab DAILY PO 08/04/16 09:00 08/09/16 08:59 08/05/16 08:46 (Protonix) 40 mg DAILY PO 08/04/16 09:00 08/05/16 08:46 (Romazicon Inj) 0.2 mg Q1M PRN IV PUSH 08/03/16 19:15 (Ativan) 1 mg Q4H PRN PO 08/03/16 19:15 08/03/16 22:01 (Ativan Inj) 1 mg Q4H PRN IV PUSH 08/03/16 19:15 (Ativan) 2 mg Q2H PRN PO 08/03/16 19:15 (Ativan Inj) 2 mg Q2H PRN IV PUSH 08/03/16 19:15 (Ativan Inj) 2 mg Q1H PRN IV PUSH 08/03/16 19:15 (Ativan Inj) 2 mg Q15M PRN IV PUSH 08/03/16 19:15 (Cardizem Cd) 120 mg DAILY PO 08/04/16 09:00 08/05/16 08:46 (Catapres) 0.1 mg Q6H PRN PO 08/04/16 09:30 08/04/16 11:15 (Prinivil) 10 mg DAILY PO 08/04/16 09:30 08/05/16 08:45 Vital Signs / I&O Vital Signs Date Time Temp Pulse Resp B/P Pulse Ox O2 Delivery O2 Flow Rate FiO2 08/05/16 08:44 96 21 08/05/16 08:04 99.2 69 16 161/110 95 08/05/16 08:00 69 08/05/16 07:15 74 08/05/16 06:00 63 08/05/16 05:00 79 08/05/16 04:00 62 08/05/16 03:00 97.8 65 16 157/99 94 08/05/16 03:00 64 08/05/16 02:00 67 08/05/16 01:00 55 08/05/16 00:00 56 08/04/16 23:00 97.5 66 16 156/107 96 08/04/16 23:00 61 08/04/16 22:00 62 08/04/16 21:00 66 08/04/16 20:48 96 08/04/16 20:00 66 08/04/16 19:00 65 08/04/16 19:00 97.8 69 18 141/94 93 08/04/16 18:01 76 08/04/16 17:01 60 08/04/16 16:00 66 08/04/16 15:01 98.4 73 16 135/87 97 08/04/16 15:00 64 08/04/16 14:00 68 08/04/16 13:00 74 08/04/16 12:49 74 18 135/78 95 08/04/16 12:01 71 08/04/16 11:30 97.8 74 16 168/106 95 08/04/16 11:00 73 08/04/16 10:01 90 I/O 08/04/16 08/04/16 08/04/16 08/05/16 08/05/16 08/05/16 07:00 15:00 23:00 07:00 15:00 23:00 Intake Total 527 ml 868 ml 480 ml Output Total 975 ml 325 ml Balance -448 ml 543 ml 480 ml Intake Oral 462 ml 720 ml 480 ml IV Total 65 ml 148 ml Output Urine Total 975 ml 325 ml # Voids 5 5 # Bowel Movements 1 Physical Exam GENERAL: In NAD SKIN: Warm and dry. HEAD: Normocephalic. EYES: No scleral icterus. No injection or drainage. NECK: Supple, trachea midline. No JVD or lymphadenopathy. CARDIOVASCULAR: Regular rate and rhythm without murmurs, gallops, or rubs. RESPIRATORY: Breath sounds equal bilaterally. No accessory muscle use. GASTROINTESTINAL: Abdomen soft, non-tender, nondistended. MUSCULOSKELETAL: No cyanosis, or edema. Laboratory Laboratory Tests Test 08/03/16 08/04/16 17:50 04:51 Prothrombin Time 12.4 SEC Prothromb Time International 1.1 RATIO Ratio Activated Partial 27.1 SEC Thromboplast Time Magnesium Level 1.8 MG/DL Total Bilirubin 1.4 MG/DL Aspartate Amino Transf 42 U/L (AST/SGOT) Alanine Aminotransferase 63 U/L (ALT/SGPT) Alkaline Phosphatase 69 U/L Total Creatine Kinase 151 U/L Creatine Kinase MB 5.6 NG/ML Total Protein 6.6 GM/DL Albumin 3.3 GM/DL Lipase 159 U/L White Blood Count 6.4 TH/MM3 Red Blood Count 4.39 MIL/MM3 Hemoglobin 15.5 GM/DL Hematocrit 45.5 % Mean Corpuscular Volume 103.6 FL Mean Corpuscular Hemoglobin 35.2 PG Mean Corpuscular Hemoglobin 34.0 % Concent Red Cell Distribution Width 12.6 % Platelet Count 131 TH/MM3 Mean Platelet Volume 8.8 FL Neutrophils (%) (Auto) 69.9 % Lymphocytes (%) (Auto) 19.7 % Monocytes (%) (Auto) 7.7 % Eosinophils (%) (Auto) 1.7 % Basophils (%) (Auto) 1.0 % Neutrophils # (Auto) 4.5 TH/MM3 Lymphocytes # (Auto) 1.3 TH/MM3 Monocytes # (Auto) 0.5 TH/MM3 Eosinophils # (Auto) 0.1 TH/MM3 Basophils # (Auto) 0.1 TH/MM3 CBC Comment DIFF FINAL Differential Comment Sodium Level 140 MEQ/L Potassium Level 3.3 MEQ/L Chloride Level 105 MEQ/L Carbon Dioxide Level 26.8 MEQ/L Anion Gap 8 MEQ/L Blood Urea Nitrogen 5 MG/DL Creatinine 0.59 MG/DL Estimat Glomerular Filtration 142 ML/MIN Rate Random Glucose 89 MG/DL Calcium Level 8.2 MG/DL Troponin I 0.06 NG/ML Imaging Last Impressions Chest X-Ray 08/03/16 1729 Signed Impressions: Service Date/Time: Wednesday, August 03, 2016 17:38 - CONCLUSION: Minimal bibasilar atelectatic changes with no confluent infiltrate or effusion. Sesar Morrow MD Assessment and Plan Problem List: (1) Atrial fibrillation with RVR (2) Alcohol withdrawal (3) HTN (hypertension) (4) Elevated troponin I level Assessment and Plan Stays in SR. Minimal troponin elevation related to AF. Echo w borderline nl LV fx and no WMA. Rec tx w ASA, not a candidate for full anticoagulation. Advised to stop drinking. DC home from cardiac standpoint. F/u w PCP. Problem Qualifiers (1) Alcohol withdrawal: Qualified Code: F10.230 - Alcohol withdrawal, uncomplicated Quadrat,Iris MCFADDEN Aug 05, 2016 09:35
[2016-08-05] MEDS ORDERED: CARD120C4 PO (11:27)
--- NOTE | 2016-08-05 16:19 | HHI.DS ---
Discharge Summary Admission Date Aug 03, 2016 at 7:08 pm Discharge Date: Aug 05, 2016 Admitting Diagnosis A. fib RVR, alcohol withdrawal (1) Atrial fibrillation with RVR ICD Code: I48.91 Diagnosis: Principal (2) Elevated troponin I level ICD Code: R74.8 Diagnosis: Secondary (3) HTN (hypertension) ICD Code: I10 Diagnosis: Principal Procedures none Brief History - From Admission Mr. Broussard is a 56-year-old male with a past medical history including hypertension that resolved with weight loss, tobacco abuse, and daily alcohol abuse who presented to the emergency department on 08/03/2016 complaining of imbalance, dizziness, and lightheadedness. Patient was found to have new onset atrial fibrillation with rapid ventricular response with right bundle branch block in the field by EMS. Patient is seen in his hospital room. He states that 01/02/2017, he went to dinner with his friend; had a few alcoholic beverages and got dizzy and lightheaded but was not having palpitations, shortness of breath, or chest pain. He says he felt very anxious, drank a lot of water, didn't smoke or drink overnight and just rested but never felt better. At about 3 p.m. on , his friend told him to come to the hospital as he had not improved symptomatically. He denies any chills, fever, shortness of breath, chest pain , syncope, n/v/d no black or red stool over the past two weeks. He reports feeling "great" and having "maybe too much fun" drinking alcohol and sitting on the beach in the sun without drinking any water. Became a about two years ago- from cancer; went on medication for anxiety x 1 year; been off anxiolytics for one year. CBC/BMP: 08/04/16 0451 08/04/16 0451 Significant Findings Laboratory Tests Test 08/03/16 08/03/16 08/04/16 17:50 23:57 04:51 Mean Corpuscular Volume 102.8 FL 103.6 FL (80.0-100.0) (80.0-100.0) Mean Corpuscular Hemoglobin 35.3 PG 35.2 PG (27.0-34.0) (27.0-34.0) Platelet Count 134 TH/MM3 131 TH/MM3 (150-450) (150-450) Neutrophils (%) (Auto) 77.0 % (16.0-70.0) Monocytes (%) (Auto) 12.1 % (0.0-8.0) Lymphocytes # (Auto) 0.9 TH/MM3 (1.0-4.8) Monocytes # (Auto) 1.1 TH/MM3 (0-0.9) Prothrombin Time 12.4 SEC (9.8-11.6) Random Glucose 142 MG/DL (74-106) Calcium Level 8.3 MG/DL 8.2 MG/DL (8.5-10.1) (8.5-10.1) Total Bilirubin 1.4 MG/DL (0.2-1.0) Aspartate Amino Transf 42 U/L (15-37) (AST/SGOT) Creatine Kinase MB 5.6 NG/ML (0.5-3.6) Troponin I 0.11 NG/ML 0.08 NG/ML 0.06 NG/ML (0.02-0.05) (0.02-0.05) (0.02-0.05) Albumin 3.3 GM/DL (3.4-5.0) Red Blood Count 4.39 MIL/MM3 (4.50-5.90) Potassium Level 3.3 MEQ/L (3.5-5.1) Blood Urea Nitrogen 5 MG/DL (7-18) Creatinine 0.59 MG/DL (0.60-1.30) PE at Discharge GENERAL: NAD SKIN: Warm and dry. HEAD: Normocephalic. EYES: No scleral icterus. No injection or drainage. NECK: Supple, trachea midline. No JVD or lymphadenopathy. CARDIOVASCULAR: Regular rate and rhythm without murmurs, gallops, or rubs. RESPIRATORY: Breath sounds equal bilaterally. No accessory muscle use. GASTROINTESTINAL: Abdomen soft, non-tender, nondistended. MUSCULOSKELETAL: No cyanosis, or edema. BACK: Nontender without obvious deformity. No CVA tenderness. Pt update on day of discharge Stable, feels at baseline, desires discharge Hospital Course Mr. Broussard was admitted for A-fib RVR. He also had an elevated troponin and HTN. A-fib RVR resolved quickly on cardizem. Etiology is most likely related to a week of partying with poor food intake, high alcohol intake and too much time in the sun causing dehydration. He denies drug use. HTN is better controlled also on diltiazem. Troponin elevation was mild and had a downward trend without any chest pain, etiology is suspected to also be from A-fib RVR and dehydration. He is feeling better today and is medically stable for discharge in NSR on diltiazem for BP control. Pt Condition on Discharge: Stable Discharge Disposition: Discharge Home Discharge Time: <= 30 minutes Discharge Instructions DIET: Follow Instructions for: As Tolerated, No Restrictions Speech Therapy-Diet Recommends: Regular Activities you can perform: Regular-No Restrictions Follow up Referrals: PCP Follow-up - 2 Weeks New Medications: Diltiazem CD 24 HR (Cardizem CD 24 HR) 120 Mg Caper 120 MG PO DAILY Blood Pressure Management #30 Ref 0 Kingston Guzman MD Aug 05, 2016 4:19 pm
== END 2016-08-05 13:30 | disposition home or self-care (01) | DRG 309 ==
LOC: NEPE 17:26 → NEDA 19:08 → HCIS 20:45
PROVIDERS: ADMIT Hospitalist; ATTEND Hospitalist
DX: I48.91 Unspecified atrial fibrillation (principal); F10.230 Alcohol dependence with withdrawal, uncomplicated; I10 Essential (primary) hypertension; R74.8 Abnormal levels of other serum enzymes; E86.0 Dehydration; I45.10 Unspecified right bundle-branch block; F17.200 Nicotine dependence, unspecified, uncomplicated
CPT/HCPCS: 71010; 80048; 80053; 82550; 82552; 83690; 83735; 84484; 85025; 85610; 85730; 93005; 93306; 96361; 96374; 96375; 96376; J1650; J2060; J3411; J7030